=== PATIENT | male | born 1985 | race Caucasian/White ===

== ENCOUNTER 2017-04-25 18:21 | Emergency (ER) | payer SELFPAY ==
[~2017-04-25] VITALS: Ht 177.8 cm; Wt 85.0 kg
[~2017-04-25 18:21] MED LIST: BUPR1SUB6 SL; CLON-352 PO
[2017-04-25 18:22] VITALS: BP 157/84; PULSE 120; RESP 20; TEMP 98; O2SAT 97
--- NOTE | 2017-04-25 18:30 | PD ---
Physical Exam Date Seen by Provider: Apr 25, 2017 Time Seen by Provider: 18:28 Narrative 31 yo male here for left sided chest pains. Has had it for a few months but today got more severe. Some SOB. Does outside work and doesn't know if this made it worst. Feels dizzy as well. Has not worked physically like this in a while per patient. Pain is 7/10. History of drug abuse. Vitals are stable in triage. Awaiting bed placement. Data Data Last Documented VS Vital Signs Date Time Temp Pulse Resp B/P Pulse Ox O2 Delivery O2 Flow Rate FiO2 04/25/17 18:22 98.0 120 20 157/84 97 Room Air [facility] Medical Record Reviewed: Yes Supervised Visit with MARY: No Antonio Romero Apr 25, 2017 18:29
--- NOTE | 2017-04-25 19:00 | RADRPT ---
EXAM DATE/TIME: 04/25/2017 18:33 [place] COMPARISON: No previous studies available for comparison. INDICATIONS : Chest pain and difficulty breathing after IV drug use today. MEDICAL HISTORY : None. SURGICAL HISTORY : None. ENCOUNTER: Initial ACUITY: 1 day PAIN SCORE: 3/10 LOCATION: Bilateral chest FINDINGS: A single view of the chest demonstrates the lungs to be symmetrically aerated without evidence of mas s, infiltrate or effusion. The cardiomediastinal contours are unremarkable. Osseous structures are intact. CONCLUSION: No acute disease. Cayden Fragoso MD on April 25, 2017 at 18:57 Board Certified Radiologist. This report was verified electronically.
[2017-04-25 19:19] LABS: BASOPHIL % 0.5 % (0.0-2.0); EOSINOPHIL % 0.3 % (0.0-4.0); HEMATOCRIT 39.5 % (39.0-51.0); HEMO FLAGS DIFF FINAL; LYMPH % 22.7 % (9.0-44.0); LYMPHOCYTE # 1.8 TH/MM3 (1.0-4.8); MEAN CELL VOLUME 89.8 FL (80.0-100.0); MEAN CORPUSCULAR HEMOGLOBIN 31.8 PG (27.0-34.0); MEAN CORPUSCULAR HGB CONC 35.4 % (32.0-36.0); MONO % 12.4 % (0.0-8.0); NEUT % 64.1 % (16.0-70.0); PLATELET COUNT 210 TH/MM3 (150-450); RED CELL DISTRIBUTION WIDTH 13.1 % (11.6-17.2); WHITE BLOOD COUNT 7.8 TH/MM3 (4.0-11.0)
[2017-04-25] MEDS ORDERED: SODIUM CHLOR 0.9% 1000 ML INJ 1,000 ML IV ONE ×2 (19:30→21:00)
[2017-04-25 19:43] LABS: ANION GAP 11 MEQ/L (5-15); BICARBONATE 26.1 MEQ/L (21.0-32.0); BLOOD UREA NITROGEN 20 MG/DL (7-18); CHLORIDE 102 MEQ/L (98-107); GLOMERULAR FILTRATION RATE 63 ML/MIN (>89); POTASSIUM 4.3 MEQ/L (3.5-5.1); SODIUM (NA) 139 MEQ/L (136-145)
--- NOTE | 2017-04-25 19:47 | PD ---
HPI Chief Complaint: Chest Pain Time Seen by Provider: 19:11 Travel History International Travel<30 days: No Contact w/Intl Traveler<30days: No Traveled to known affect area: No History of Present Illness HPI Patient is a 31-year-old male who presents to emergency with complaints of chest pain. Patient reports that he abuses IVD and reports using IV amphetamines this morning. Patient reports that after he injected IV amphetamines, he began to have sharp stabbing pains to his left chest wall. Reports that he felt his heart race, reports that he felt short of breath these symptoms. Patient denies any diaphoresis, or nausea or vomiting with the symptoms. Patient reports that he feels better now as his chest pain started this morning. Patient reports that he began having similar symptoms over the past 2 years as symptoms only occur when he uses IV drugs. Patient reports that symptoms are worse with IV amphetamines. Patient reports that he used to use cocaine, has not used any cocaine recently. Patient denies any history of hypertension, diabetes, hyperlipidemia, coronary artery disease. No family history of early DE or cardiac . Patient with no recent travels or chips. [facility] Past Medical History Medical History: Denies Significant Hx Past Surgical History Surgical History: No Previous Surgery Social History Alcohol Use: Yes (RARELY) Tobacco Use: No Substance Use: Yes (IV opiates and amphetamines) Allergies-Medications (Allergen,Severity, Reaction): Coded Allergies: No Known Allergies (Unverified , 04/25/17) Reported Meds & Prescriptions Reported Meds & Active Scripts Active No Active Prescriptions or Reported Medications Review of Systems General / Constitutional: No: Fever Eyes: No: Visual changes HENT: No: Headaches Cardiovascular: Positive: Chest Pain or Discomfort, Palpitations, Irregular Rhythm, Tachycardia, No: Diaphoresis Respiratory: No: Cough, Shortness of Breath Gastrointestinal: No: Abdominal Pain Genitourinary: No: Dysuria Musculoskeletal: No: Pain Skin: No Rash Neurologic: No: Weakness Psychiatric: No: Depression Endocrine: No: Polydipsia Hematologic/Lymphatic: No: Easy Bruising Physical Exam Narrative GENERAL: No acute distress, nontoxic SKIN: Focused skin assessment warm/dry. HEAD: Atraumatic. Normocephalic. EYES: Pupils equal and round. No scleral icterus. No injection or drainage. ENT: No nasal bleeding or discharge. Mucous membranes pink and moist. NECK: Trachea midline. No JVD. CARDIOVASCULAR: Tachycardic. No murmur appreciated. RESPIRATORY: No accessory muscle use. Clear to auscultation. Breath sounds equal bilaterally. GASTROINTESTINAL: Abdomen soft, non-tender, nondistended. Hepatic and splenic margins not palpable. MUSCULOSKELETAL: No obvious deformities. No clubbing. No cyanosis. No edema. NEUROLOGICAL: Awake and alert. No obvious cranial nerve deficits. Motor grossly within normal limits. Normal speech. PSYCHIATRIC: Appropriate mood and affect; insight and judgment normal. Data Data Last Documented VS Vital Signs Date Time Temp Pulse Resp B/P Pulse Ox O2 Delivery O2 Flow Rate FiO2 04/25/17 19:07 103 18 97 Room Air 04/25/17 18:22 98.0 157/84 Orders Electrocardiogram (04/25/17 18:32) Complete Blood Count With Diff (04/25/17 18:32) Basic Metabolic Panel (Bmp) (04/25/17 18:32) Ckmb (Isoenzyme) Profile (04/25/17 18:32) Troponin I (04/25/17 18:32) Thyroid Stimulating Hormone (04/25/17 18:32) Chest, Single Ap (04/25/17 18:32) Sodium Chlor 0.9% 1000 Ml Inj (Ns 1000 M (04/25/17 19:30) Prothrombin Time / Inr (Pt) (04/25/17 19:40) Act Partial Throm Time (Ptt) (04/25/17 19:40) Drug Screen, Random Urine (04/25/17 19:40) D-Dimer (04/25/17 19:41) CKMB (04/25/17 18:51) CKMB% (04/25/17 18:51) Sodium Chlor 0.9% 1000 Ml Inj (Ns 1000 M (04/25/17 21:00) Electrocardiogram (04/25/17 ) Labs Laboratory Tests Test 04/25/17 04/25/17 18:51 19:40 White Blood Count 7.8 TH/MM3 Red Blood Count 4.40 MIL/MM3 Hemoglobin 14.0 GM/DL Hematocrit 39.5 % Mean Corpuscular Volume 89.8 FL Mean Corpuscular Hemoglobin 31.8 PG Mean Corpuscular Hemoglobin 35.4 % Concent Red Cell Distribution Width 13.1 % Platelet Count 210 TH/MM3 Mean Platelet Volume 7.9 FL Neutrophils (%) (Auto) 64.1 % Lymphocytes (%) (Auto) 22.7 % Monocytes (%) (Auto) 12.4 % Eosinophils (%) (Auto) 0.3 % Basophils (%) (Auto) 0.5 % Neutrophils # (Auto) 5.0 TH/MM3 Lymphocytes # (Auto) 1.8 TH/MM3 Monocytes # (Auto) 1.0 TH/MM3 Eosinophils # (Auto) 0.0 TH/MM3 Basophils # (Auto) 0.0 TH/MM3 CBC Comment DIFF FINAL Differential Comment Sodium Level 139 MEQ/L Potassium Level 4.3 MEQ/L Chloride Level 102 MEQ/L Carbon Dioxide Level 26.1 MEQ/L Anion Gap 11 MEQ/L Blood Urea Nitrogen 20 MG/DL Creatinine 1.32 MG/DL Estimat Glomerular Filtration 63 ML/MIN Rate Random Glucose 69 MG/DL Calcium Level 9.2 MG/DL Total Creatine Kinase 3332 U/L Creatine Kinase MB 6.6 NG/ML Troponin I LESS THAN 0.02 NG/ML Thyroid Stimulating Hormone 0.762 uIU/ML 3rd Gen Prothrombin Time 11.6 SEC Prothromb Time International 1.0 RATIO Ratio Activated Partial 30.8 SEC Thromboplast Time D-Dimer Quantitative (PE/DVT) 0.43 MG/L FEU [facility] Medical Decision Making Medical Screen Exam Complete: Yes Emergency Medical Condition: Yes Interpretation(s) EKG at 1932: Sinus tachycardia at 110 beats minute, QT/QTC 321/386, no acute ST or T-wave changes repeat ekg at 2144: NSR at 83bpm, qt/qtc: 366/406, no acute st or t wave changes , non acute ekg Vital Signs Date Time Temp Pulse Resp B/P Pulse Ox O2 Delivery O2 Flow Rate FiO2 04/25/17 19:07 103 18 97 Room Air 04/25/17 18:22 98.0 120 20 157/84 97 Room Air Differential Diagnosis Drug abuse, ACS, arrhythmia, electrolyte abnormality, PE Narrative Course Patient is a 31-year-old male who presents to emergency room with complaints of chest pain. Patient associates his chest pain with using IV amphetamines, that he injected IV amphetamines this morning and began to have left-sided sharp stabbing chest pains along with tachycardia and shortness of breath shortly thereafter. 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 Patient was placed on a court monitor upon arrival to the emergency room, EKG was obtained. Patient does have sinus tachycardia, this could be secondary to injecting IV amphetamines, initial lab work was drawn in triage. X-ray of the chest is benign. Plan to give IV fluids, will check d-dimer. I did encourage patient to stop using IV drugs as this could potentially be the source of his chest pain as patient complains of symptoms only after he uses IV drugs. Vital Signs Date Time Temp Pulse Resp B/P Pulse Ox O2 Delivery O2 Flow Rate FiO2 04/25/17 19:07 103 18 97 Room Air 04/25/17 18:22 98.0 120 20 157/84 97 Room Air Laboratory Tests Test 04/25/17 04/25/17 18:51 19:40 White Blood Count 7.8 TH/MM3 (4.0-11.0) Red Blood Count 4.40 MIL/MM3 (4.50-5.90) Hemoglobin 14.0 GM/DL (13.0-17.0) Hematocrit 39.5 % (39.0-51.0) Mean Corpuscular Volume 89.8 FL (80.0-100.0) Mean Corpuscular Hemoglobin 31.8 PG (27.0-34.0) Mean Corpuscular Hemoglobin 35.4 % Concent (32.0-36.0) Red Cell Distribution Width 13.1 % (11.6-17.2) Platelet Count 210 TH/MM3 (150-450) Mean Platelet Volume 7.9 FL (7.0-11.0) Neutrophils (%) (Auto) 64.1 % (16.0-70.0) Lymphocytes (%) (Auto) 22.7 % (9.0-44.0) Monocytes (%) (Auto) 12.4 % (0.0-8.0) Eosinophils (%) (Auto) 0.3 % (0.0-4.0) Basophils (%) (Auto) 0.5 % (0.0-2.0) Neutrophils # (Auto) 5.0 TH/MM3 (1.8-7.7) Lymphocytes # (Auto) 1.8 TH/MM3 (1.0-4.8) Monocytes # (Auto) 1.0 TH/MM3 (0-0.9) Eosinophils # (Auto) 0.0 TH/MM3 (0-0.4) Basophils # (Auto) 0.0 TH/MM3 (0-0.2) CBC Comment DIFF FINAL Differential Comment Sodium Level 139 MEQ/L (136-145) Potassium Level 4.3 MEQ/L (3.5-5.1) Chloride Level 102 MEQ/L (98-107) Carbon Dioxide Level 26.1 MEQ/L (21.0-32.0) Anion Gap 11 MEQ/L (5-15) Blood Urea Nitrogen 20 MG/DL (7-18) Creatinine 1.32 MG/DL (0.60-1.30) Estimat Glomerular Filtration 63 ML/MIN (>89) Rate Random Glucose 69 MG/DL (74-106) Calcium Level 9.2 MG/DL (8.5-10.1) Total Creatine Kinase 3332 U/L (39-308) Creatine Kinase MB 6.6 NG/ML (0.5-3.6) Troponin I LESS THAN 0.02 NG/ML (0.02-0.05) Thyroid Stimulating Hormone 0.762 uIU/ML 3rd Gen (0.358-3.740) Prothrombin Time 11.6 SEC (9.8-11.6) Prothromb Time International 1.0 RATIO Ratio Activated Partial 30.8 SEC Thromboplast Time (24.3-30.1) D-Dimer Quantitative (PE/DVT) 0.43 MG/L FEU (0.00-0.50) Last Impressions Chest X-Ray 04/25/17 1832 Signed Impressions: Service Date/Time: Tuesday, April 25, 2017 18:33 - CONCLUSION: No acute disease. Cayden Fragoso MD Patient reevaluated at this time, patient reports complete resolution of symptoms. CBC: WNL, BMP: BUN 20, creatinine 1.32, total CK 3332, troponin less than 0.02, CK-MB 6.6, TSH 0.762, I do believe the patient's total CK is due to his drug abuse as well as his work. 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 I did encourage patient to drink plenty of fluids to clear his CK total as he does have rhabdomyolysis at this time. I also encouraged patient to stop using drugs as this brings on his chest pain. Plan to have patient follow up with stoneworking sander as outpatient, return to the emergency room as needed. Diagnosis Primary Impression: Chest pain Qualified Code: R07.9 - Chest pain, unspecified type Additional Impressions: Rhabdomyolysis Qualified Code: M62.82 - Non-traumatic rhabdomyolysis Drug abuse and dependence Dehydration Referrals: Ishmael Pineda MD Patient Instructions: General Instructions Additional Instructions: Patient plenty of fluids Please stop using drugs Return to emergency room as needed Return to emergency symptoms return or persist Please follow-up with the primary care doctor Please follow-up with a stoneworking sander as outpatient - call first thing in the morning for earliest follow-up appointment Scripts No Active Prescriptions or Reported Meds Disposition: 01 DISCHARGE HOME Condition: Stable Lia Medley DO Apr 25, 2017 19:47
[2017-04-25 20:20] LABS: APTT (PATIENT) 30.8 SEC (24.3-30.1); PROTHROMBIN TIME - PATIENT 11.6 SEC (9.8-11.6)
[2017-04-25 20:36] LABS: CREATINE KINASE 3332 U/L (39-308)
[2017-04-25 20:46] LABS: CKMB 6.6 NG/ML (0.5-3.6)
--- NOTE | 2017-04-26 07:52 | EKG ---
Date Performed: 04/25/2017 Time Performed: 21:45:04 PTAGE: 31 years EKG: Sinus rhythm NORMAL ECG PREVIOUS TRACING : 04/25/2017 18.40 DOCTOR: Ishmael Pineda Interpretating Date/Time 04/26/2017 07:49:49
--- NOTE | 2017-04-26 07:57 | EKG ---
Date Performed: 04/25/2017 Time Performed: 18:40:18 PTAGE: 31 years EKG: SINUS TACHYCARDIA ABNORMAL RHYTHM ECG NO PREVIOUS TRACING DOCTOR: Ishmael Pineda Interpretating Date/Time 04/26/2017 07:52:31
== END 2017-04-25 22:48 | disposition home or self-care (01) ==
LOC: NEPC 18:21
DX: R07.9 Chest pain, unspecified (principal); M62.82 Rhabdomyolysis; F19.20 Other psychoactive substance dependence, uncomplicated; E86.0 Dehydration; R00.0 Tachycardia, unspecified
CPT/HCPCS: 71010; 80048; 82550; 82552; 84443; 84484; 85025; 85379; 85610; 85730; 93005; 99285; J7030